=== PATIENT | female | born 1980 | race Caucasian/White ===

== ENCOUNTER → 2016-03-16 | Outpatient (CLI) | payer OTHER | LOC: FLACT 09:48 | PROVIDERS: ATTEND Obstetrics & Gynecology | DX: O92.79 Other disorders of lactation (principal) | CPT/HCPCS: G0463 ==

== ENCOUNTER → 2016-04-08 | Outpatient (CLI) | payer OTHER | LOC: FLACT 12:21 | PROVIDERS: ATTEND Obstetrics & Gynecology | DX: Z39.0 Encounter for care and examination of mother immediately after delivery (principal) | CPT/HCPCS: G0463 ==